=== PATIENT | female | born 1950 | race Caucasian/White ===

== ENCOUNTER → 2019-11-25 06:00 | Outpatient (CLI) | payer OTHER ==
[~2019-11-25 06:00] MED LIST: AMIODARONE HCL100 MG; AMLODIPINE BESYL5 MG PO; GLIMEPIRIDE4 M1 PO; LEVO-T88 MCG PO; LOSARTAN-HCTZ1 EAC2 PO; METFORMIN HCL500 M3 PO; XARELTO20 MG PO
== END | disposition home or self-care (01) ==
LOC: LAB 06:00 → ADM 13:00 → CIR.AMB 11-27 05:55 → EDSTATUS 11-27 13:00 → CIR.AMB 11-27 15:15
DX: K64.2 Third degree hemorrhoids (principal); K92.1 Melena; Z01.818 Encounter for other preprocedural examination

== ENCOUNTER 2025-02-05 08:15 | Inpatient (IN) | payer OTHER ==
[~2025-02-05] VITALS: Ht 167.6 cm; Wt 81.6 kg
[2025-02-05] MEDS ORDERED: XIGDUO XR 10 M1 EACH PO (10:24)
[2025-02-05] MEDS ORDERED: ATORVASTATIN CA10 MG PO (10:24)
[2025-02-05] MEDS ORDERED: AMIODARONE HCL100 MG PO (10:25)
[2025-02-05] MEDS ORDERED: ARICEPT5 MG PO (10:26)
[2025-02-05 10:34] VITALS: BP 157/91
[2025-02-05 10:36] LABS: HEMATOCRIT 41.2 % (36.0-45.00); HEMOGLOBIN 13.8 g/dL (12.0-15.00); MEAN CELL VOLUME 84.1 fL (80.00-100.00); MEAN CORPUSCULAR HEMOGLOBIN 28.1 pg (27.00-32.0); MEAN CORPUSCULAR HGB CONC 33.4 g/dl (32.0-36.0); PLATELET COUNT 142 K/uL (150-450); RED BLOOD COUNT 4.91 M/uL (4.00-6.00); RED CELL DISTRIBUTION WIDTH 14.1 % (11.5-14.5)
[2025-02-05 10:58] LABS: INR 1.22; PROTHROMBIN TIME 13.1 SECONDS (9.0-11.5)
[2025-02-05 11:01] LABS: PARTIAL THROMBOPLASTIN TIME 39.9 SECONDS (22.0-34.0)
[2025-02-05 11:18] LABS: ALBUMIN 3.5 gm/dL (3.4-5.0); BILIRUBIN TOTAL 0.57 mg/dL (0.3-1.2); CALCIUM 9.7 mg/dL (8.5-10.1); CREATININE SERUM 0.81 mg/dL (0.55-1.02); GFR 68.93; POTASSIUM 3.78 mEq/L (3.5-5.1); TOTAL PROTEIN 7.5 gm/dL (6.4-8.2)
[2025-02-05 12:09] LABS: PH,URINE 5.5 (5.0-8.0); URINE APPEARANCE Clear; URINE BILIRRUBIN Negative (NEGATIVE); URINE BLOOD Negative; URINE COLOR Yellow; URINE KETONE Negative (NEGATIVE); URINE LEUKOCYTE Negative; URINE NITRATE Negative; URINE PROTEIN Trace (NEGATIVE); URINE UROBILINOGEN 0.2 E.U./dl
[2025-02-05 12:10] LABS: URINE BACTERIA 9.7 uL (0.0-1933)
[2025-02-05 12:24] LABS: URINE CAST 0.14 uL (0.0-1.40); URINE EPITHELIAL CELLS 1.2 uL (0.0-38.8); URINE GLUCOSE >=1000 MG/DL (NEGATIVE); URINE RBC 0.2 uL (0.0-20.8); URINE WBC 1.7 uL (0.0-23.2)
[2025-02-18] MEDS ORDERED: DONEPEZIL HCL10 MG (08:15)
[2025-02-18] MEDS ORDERED: MEMANTINE HCL ER7 MG (08:15)
[2025-02-18] MEDS ORDERED: LEVOTHYROXINE100 MCG (08:16)
[2025-02-18] MEDS ORDERED: AMIODARONE HCL200 MG (08:16)
[2025-02-18] MEDS ORDERED: ST. JOSEPH ASPI81 M2 (08:16)
[2025-02-18] MEDS ORDERED: LOSARTAN POTAS100 MG (08:17)
[2025-02-18] MEDS ORDERED: ATORVASTATIN CA10 MG (08:17)
[2025-02-18] MEDS ORDERED: XIGDUO XR 10 M1 EAC1 (08:18)
[2025-02-18] MEDS ORDERED: KETOROLAC TROMETHAMINE 60 MG VIAL IM ONE (08:54)
[2025-02-18] MEDS ORDERED: APIXABAN 2.5 MG TABLET PO SCH (09:14)
[2025-02-18] MEDS ORDERED: OxyCODONE HCL 5 MG TABLET (ROXICODONE) PO PRN (09:15)
[2025-02-18] MEDS ORDERED: ONDANSETRON HCL 2 MG/ML VIAL IV PRN (09:15)
[2025-02-18] MEDS ORDERED: BUPIVACAINE HCL 30 ML VIAL IJ ONE (10:00)
[2025-02-18] MEDS ORDERED: CEFAZOLIN SODIUM 1,000 MG VIAL IV ONE (10:00)
[2025-02-18] MEDS ORDERED: TRANEXAMIC ACID 100MG/1ML (1000MG) AMPUL IV ONE (10:00)
[2025-02-18] MEDS ORDERED: LIDOCAINE HCL 1%/EPINEPHRINE 20ML VIAL IJ ONE (10:00)
[2025-02-18] MEDS ORDERED: MORPHINE SULFATE 4 MG/ML VIAL IV ONE ×2 (10:40→11:10)
[2025-02-18] MEDS ORDERED: DEXTROSE 50 % IN WATER 0.5 G/ML VIAL IV PRN (10:45)
[2025-02-18] MEDS ORDERED: ENALAPRILAT DIHYDRATE 1.25 MG/ML VIAL IV PRN (10:45)
[2025-02-18] MEDS ORDERED: INSULIN LISPRO 1,000 UNIT/10 ML UNITS SUBCUTANEO PRN (10:45)
[2025-02-18] MEDS ORDERED: CEFAZOLIN SODIUM 1,000 MG VIAL ONE (11:43)
[2025-02-18] MEDS ORDERED: ACETAMINOPHEN 325 MG TABLET PO SCH (12:00)
[2025-02-18] MEDS ORDERED: CEFAZOLIN SODIUM 1,000 MG VIAL IV SCH (12:00)
[2025-02-18] MEDS ORDERED: MORPHINE SULFATE 4 MG/ML CARTRIDGE IV SCH (12:00)
[2025-02-18 13:28] VITALS: BP 136/74; O2SAT 95
[2025-02-18 16:25] VITALS: O2SAT 94
[2025-02-18 16:39] VITALS: BP 127/67; O2SAT 100
[2025-02-18] MEDS ORDERED: DONEPEZIL HCL 10 MG TABLET PO SCH (17:00)
[2025-02-18] MEDS ORDERED: ATORVASTATIN CALCIUM 10 MG TABLET PO SCH (17:00)
[2025-02-18] MEDS ORDERED: MEMANTINE HCL 10 MG TABLET PO SCH (17:00)
[2025-02-18 19:26] VITALS: O2SAT 90
[2025-02-18] MEDS ORDERED: GABAPENTIN 100 MG CAPSULE PO SCH (21:00)
[2025-02-18] MEDS ORDERED: ORPHENADRINE CITRATE 100 MG TABLET PO SCH (21:00)
[2025-02-19] VITALS (8 sets, daily range): BP systolic 131–144; BP diastolic 74–84; O2SAT 89–96
[2025-02-19] MEDS ORDERED: LEVOTHYROXINE SODIUM 100 MCG TABLET PO SCH (06:00)
[2025-02-19 07:03] LABS: BASO % 0.3 % (0.1-1.2); EOS # 0.05 (0.04-0.54); EOS % 0.7 % (0.7-7.0); HEMATOCRIT 34.5 % (34.1-44.9); HEMOGLOBIN 10.6 g/dL (11.2-15.7); LYMPH # 0.78 (1.18-3.74); LYMPH % 10.4 % (19.3-53.1); MEAN CORPUSCULAR HEMOGLOBIN 26.8 pg (25.6-32.2); MONO # 0.79 (0.24-0.82); MONO % 10.5 % (4.7-12.5); NEUT # 5.84 (1.56-6.13); NEUT % 77.6 % (34.0-71.1); RED BLOOD COUNT 3.95 M/uL (3.93-5.22); RED CELL DISTRIBUTION WIDTH 14.5 % (11.6-14.4)
[2025-02-19 07:09] LABS: PLATELET COUNT 115 K/uL (163-369)
[2025-02-19] MEDS ORDERED: ENOXAPARIN SODIUM 30 MG/0.3 ML SYRINGE SUBCUTANEO SCH (09:00)
[2025-02-19] MEDS ORDERED: LOSARTAN POTASSIUM 100 MG TABLET PO SCH (09:00)
[2025-02-19] MEDS ORDERED: AMIODARONE HCL 200 MG TABLET PO SCH (09:00)
[2025-02-19] MEDS ORDERED: APIXABAN 2.5 MG TABLET PO SCH (09:00)
[2025-02-19 11:27] LABS: COVID-19 AG NEGATIVE (NEGATIVE)
[2025-02-19] MEDS ORDERED: IRON FUM,PS/FOLIC ACID/VITC/B3 1 CAP CAPSULE PO SCH (15:55)
[2025-02-19] MEDS ORDERED: VITAMIN B COMPLEX 1 EACH PO SCH (17:00)
[2025-02-19] MEDS ORDERED: Cyanocobalamin/Mecobalamin 1 TAB.SL SL SCH (17:00)
[2025-02-19] MEDS ORDERED: SOD FERRIC GLUC COMPLX/SUCROSE 62.5 MG/5 ML AMPUL IV SCH (17:00)
[2025-02-20 00:34] VITALS: BP 120/69; O2SAT 94
[2025-02-20 06:57] LABS: BASO % 0.3 % (0.1-1.2); EOS # 0.12 (0.04-0.54); EOS % 1.8 % (0.7-7.0); HEMATOCRIT 30.3 % (34.1-44.9); HEMOGLOBIN 9.3 g/dL (11.2-15.7); LYMPH # 0.68 (1.18-3.74); LYMPH % 10.5 % (19.3-53.1); MEAN CORPUSCULAR HEMOGLOBIN 26.6 pg (25.6-32.2); MONO # 0.76 (0.24-0.82); MONO % 11.7 % (4.7-12.5); NEUT % 75.4 % (34.0-71.1); RED BLOOD COUNT 3.49 M/uL (3.93-5.22); RED CELL DISTRIBUTION WIDTH 14.6 % (11.6-14.4)
[2025-02-20 07:20] LABS: PLATELET COUNT 122 K/uL (163-369)
[2025-02-20 08:00] VITALS: BP 134/74; O2SAT 94
[2025-02-20] MEDS ORDERED: ELIQUIS2.5 MG PO (10:15)
[2025-02-20] MEDS ORDERED: NORFLEX100MG PO (10:15)
[2025-02-20] MEDS ORDERED: GABAPENTIN100 MG PO (10:15)
[2025-02-20] MEDS ORDERED: OXYCODONE HCL5 MG PO (10:17)
[2025-02-20 16:21] VITALS: BP 153/77; O2SAT 97
== END 2025-02-20 19:59 | DRG 470 ==
LOC: SURH 02-11 08:15 → O/R 02-18 06:30 → SURG 02-18 06:30
PROVIDERS: ADMIT Orthopaedic Surgery; ATTEND Orthopaedic Surgery
PROC: 4A12X4Z Monitoring of Cardiac Electrical Activity, External Approach (ICD-10-PCS; 2025-02-18)
PROC: 0SRC0JZ Replacement of Right Knee Joint with Synthetic Substitute, Open Approach (ICD-10-PCS; principal; 2025-02-18 07:15)
DX: M17.11 Unilateral primary osteoarthritis, right knee (principal); D62 Acute posthemorrhagic anemia; M85.661 Other cyst of bone, right lower leg; I10 Essential (primary) hypertension

== ENCOUNTER 2025-02-10 14:52 | Outpatient (CLI) | payer OTHER ==
[~2025-02-10 14:52] MED LIST changes: +AMIODARONE HCL100 MG PO; +ARICEPT5 MG PO; +ATORVASTATIN CA10 MG PO; +XIGDUO XR 10 M1 EACH PO
[2025-02-10 16:12] LABS: INR 1.2; PROTHROMBIN TIME 12.9 SECONDS (9.0-11.5)
[2025-02-10 16:41] LABS: PARTIAL THROMBOPLASTIN TIME 38.4 SECONDS (22.0-34.0)
== END 2025-02-10 15:30 | disposition home or self-care (01) ==
LOC: LAB 14:52
PROVIDERS: ATTEND Internal Medicine
DX: D64.9 Anemia, unspecified (principal); D68.9 Coagulation defect, unspecified

== ENCOUNTER 2025-02-23 11:43 | Inpatient (IN) | payer OTHER ==
[~2025-02-23] VITALS: Ht 167.6 cm; Wt 81.6 kg
[~2025-02-23 11:43] MED LIST changes: +AMIODARONE HCL200 MG; +ATORVASTATIN CA10 MG; +DONEPEZIL HCL10 MG; +ELIQUIS2.5 MG PO; +GABAPENTIN100 MG PO; +LEVOTHYROXINE100 MCG; +LOSARTAN POTAS100 MG; +MEMANTINE HCL ER7 MG; +NORFLEX100MG PO; +OXYCODONE HCL5 MG PO; +ST. JOSEPH ASPI81 M2; +XIGDUO XR 10 M1 EAC1
[2025-02-23 13:58] LABS: BASO % 0.5 % (0.1-1.2); EOS # 0.04 (0.04-0.54); EOS % 0.7 % (0.7-7.0); LYMPH # 0.69 (1.18-3.74); LYMPH % 11.9 % (19.3-53.1); MONO # 0.57 (0.24-0.82); MONO % 9.8 % (4.7-12.5); NEUT # 4.44 (1.56-6.13); NEUT % 76.2 % (34.0-71.1); PLATELET COUNT 233 K/uL (163-369); RED CELL DISTRIBUTION WIDTH 14.4 % (11.6-14.4)
[2025-02-23 14:21] LABS: ALBUMIN 2.4 gm/dL (3.4-5.0); BILIRUBIN TOTAL 1.07 mg/dL (0.3-1.2); BILIRUBIN,CONJUGATED 0.37 mg/dL (0.0-0.2); BILIRUBIN,UNCONJUGATED 0.7 mg/dL (0.0-0.6); CALCIUM 8.6 mg/dL (8.5-10.1); CREATININE SERUM 0.73 mg/dL (0.55-1.02); GFR 77.72; GLOBULINA 3.7 G/DL (2.4-3.5); POTASSIUM 4.49 mEq/L (3.5-5.1); TOTAL PROTEIN 6.1 gm/dL (6.4-8.2)
[2025-02-23 14:44] LABS: HEMATOCRIT 25.9 % (34.1-44.9); HEMOGLOBIN 8.1 g/dL (11.2-15.7)
[2025-02-23] MEDS ORDERED: Cyanocobalamin/Mecobalamin 1 TAB.SL SL SCH (14:58)
[2025-02-23] MEDS ORDERED: ACETAMINOPHEN 500 MG GEL..CAP PO PRN (15:00)
[2025-02-23] MEDS ORDERED: FUROsemide 20 MG/2 ML VIAL IV SCH (15:00)
[2025-02-23] MEDS ORDERED: ENALAPRILAT DIHYDRATE 1.25 MG/ML VIAL IV PRN (15:00)
[2025-02-23] MEDS ORDERED: 0.9 % SODIUM CHLORIDE 1,000 ML IV SCH (15:00)
[2025-02-23] MEDS ORDERED: INSULIN LISPRO 1,000 UNIT/10 ML UNITS SUBCUTANEO PRN (15:00)
[2025-02-23] MEDS ORDERED: DEXTROSE 50 % IN WATER 0.5 G/ML DISP.SYRIN IV PRN (15:00)
[2025-02-23 15:03] LABS: INR 1.31
[2025-02-23 15:12] LABS: PARTIAL THROMBOPLASTIN TIME 40.2 SECONDS (22.0-34.0)
[2025-02-23 15:32] LABS: COVID-19 AG NEGATIVE (NEGATIVE)
[2025-02-23 15:34] LABS: INFLUENZA A AG NEGATIVE (NEGATIVE); INFLUENZA B AG NEGATIVE (NEGATIVE)
[2025-02-23] MEDS ORDERED: MEMANTINE HCL 10 MG TABLET PO SCH (17:00)
[2025-02-23] MEDS ORDERED: DONEPEZIL HCL 10 MG TABLET PO SCH (17:00)
[2025-02-23] MEDS ORDERED: SOD FERRIC GLUC COMPLX/SUCROSE 62.5 MG in 0.9 % SODIUM CHLORIDE 50 ML IV SCH (17:00)
[2025-02-23] MEDS ORDERED: ATORVASTATIN CALCIUM 10 MG TABLET PO SCH (17:00)
[2025-02-23 17:30] VITALS: BP 100/65; O2SAT 96
[2025-02-23 18:18] LABS: COL ADP 142 SECONDS (56-102); COL EPI 73 SECONDS (82-175)
[2025-02-23] MEDS ORDERED: FAMOTIDINE/PF 20 MG/2 ML VIAL IV SCH (21:00)
[2025-02-23] MEDS ORDERED: GABAPENTIN 100 MG CAPSULE PO SCH (21:00)
[2025-02-23] MEDS ORDERED: POLYETHYLENE GLYCOL 3350 17 GM BLIST.PACK PO SCH (21:00)
[2025-02-24 01:07] VITALS: BP 133/76; O2SAT 94
[2025-02-24] MEDS ORDERED: LEVOTHYROXINE SODIUM 100 MCG TABLET PO SCH (06:00)
[2025-02-24] MEDS ORDERED: AMIODARONE HCL 200 MG TABLET PO SCH (09:00)
[2025-02-24] MEDS ORDERED: LOSARTAN POTASSIUM 100 MG TABLET PO SCH (09:00)
[2025-02-24 09:01] VITALS: BP 123/76; O2SAT 95
[2025-02-24 16:00] VITALS: BP 104/66; O2SAT 96
[2025-02-24] MEDS ORDERED: ENOXAPARIN SODIUM 30 MG/0.3 ML SYRINGE SUBCUTANEO SCH (21:00)
[2025-02-25 00:32] VITALS: BP 116/68; O2SAT 98
[2025-02-25 02:54] LABS: BASO % 0.3 % (0.1-1.2); EOS # 0.09 (0.04-0.54); EOS % 1.5 % (0.7-7.0); HEMATOCRIT 26.9 % (34.1-44.9); HEMOGLOBIN 8.7 g/dL (11.2-15.7); LYMPH # 0.84 (1.18-3.74); LYMPH % 13.9 % (19.3-53.1); MEAN CORPUSCULAR HEMOGLOBIN 27.4 pg (25.6-32.2); NEUT # 4.41 (1.56-6.13); NEUT % 73.1 % (34.0-71.1); PLATELET COUNT 199 K/uL (163-369); RED BLOOD COUNT 3.18 M/uL (3.93-5.22); RED CELL DISTRIBUTION WIDTH 14.7 % (11.6-14.4)
[2025-02-25 08:00] VITALS: BP 145/72; O2SAT 97
[2025-02-25 16:00] VITALS: BP 116/84; O2SAT 94
[2025-02-25] MEDS ORDERED: FAMOtidine 20 MG TABLET PO SCH (21:00)
[2025-02-26 01:07] VITALS: BP 132/86; O2SAT 98
[2025-02-26 08:00] VITALS: BP 158/76; O2SAT 95
[2025-02-26 13:57] LABS: COVID-19 AG NEGATIVE (NEGATIVE)
[2025-02-26] MEDS ORDERED: VITAMIN B COMPLEX 1 EACH PO SCH (17:00)
[2025-02-26 17:46] VITALS: BP 129/67; O2SAT 94
[2025-02-26] MEDS ORDERED: FUROsemide 20 MG/2 ML VIAL IV SCH (23:30)
[2025-02-27 01:18] VITALS: BP 129/79; O2SAT 98
[2025-02-27 01:41] LABS: BASO % 0.3 % (0.1-1.2); EOS # 0.12 (0.04-0.54); EOS % 1.8 % (0.7-7.0); HEMATOCRIT 35.1 % (34.1-44.9); HEMOGLOBIN 11.6 g/dL (11.2-15.7); LYMPH # 0.93 (1.18-3.74); LYMPH % 14.1 % (19.3-53.1); MEAN CORPUSCULAR HEMOGLOBIN 28.3 pg (25.6-32.2); MONO # 0.78 (0.24-0.82); MONO % 11.8 % (4.7-12.5); NEUT # 4.69 (1.56-6.13); NEUT % 70.9 % (34.0-71.1); PLATELET COUNT 198 K/uL (163-369); RED CELL DISTRIBUTION WIDTH 15.6 % (11.6-14.4)
[2025-02-27 08:00] VITALS: BP 157/89; O2SAT 97
[2025-02-27 17:05] VITALS: BP 126/70; O2SAT 96
[2025-02-28 00:46] VITALS: BP 136/75; O2SAT 97
[2025-02-28 07:04] LABS: BASO % 0.4 % (0.1-1.2); EOS # 0.19 (0.04-0.54); EOS % 2.6 % (0.7-7.0); HEMATOCRIT 38.1 % (34.1-44.9); LYMPH # 1.02 (1.18-3.74); MEAN CORPUSCULAR HEMOGLOBIN 27.7 pg (25.6-32.2); MONO # 0.66 (0.24-0.82); MONO % 9.1 % (4.7-12.5); NEUT # 5.33 (1.56-6.13); NEUT % 73.2 % (34.0-71.1); PLATELET COUNT 194 K/uL (163-369); RED BLOOD COUNT 4.33 M/uL (3.93-5.22); RED CELL DISTRIBUTION WIDTH 15.6 % (11.6-14.4)
== END 2025-02-28 17:33 | DRG 379 ==
LOC: ER 11:43 → SURH 15:15
PROVIDERS: Emergency Medicine; Internal Medicine Geriatric Medicine; Orthopaedic Surgery; ADMIT Internal Medicine; ATTEND Internal Medicine
PROC: 30233N1 Transfusion of Nonautologous Red Blood Cells into Peripheral Vein, Percutaneous Approach (ICD-10-PCS; principal; 2025-02-23)
DX: K62.5 Hemorrhage of anus and rectum (principal); D64.9 Anemia, unspecified; E03.9 Hypothyroidism, unspecified; I10 Essential (primary) hypertension; G30.9 Alzheimer's disease, unspecified; F02.80 Dementia in other diseases classified elsewhere, unspecified severity, without behavioral disturbance, psychotic disturbance, mood disturbance, and anxiety; I48.0 Paroxysmal atrial fibrillation

== ENCOUNTER 2025-04-19 20:16 | Emergency (ER) | payer OTHER ==
[~2025-04-19] VITALS: Ht 160 cm; Wt 78.0 kg
[2025-04-19 20:41] VITALS: BP 135/81; O2SAT 99
[2025-04-19] MEDS ORDERED: CEFTRIAXONE SODIUM 1,000 MG VIAL ONE (21:08)
[2025-04-19] MEDS ORDERED: CEFTRIAXONE SODIUM 1,000 MG VIAL IM STA (21:09)
[2025-04-19 21:23] LABS: BASO % 0.6 % (0.1-1.2); EOS # 0.20 (0.04-0.54); EOS % 3.9 % (0.7-7.0); LYMPH # 0.87 (1.18-3.74); LYMPH % 17.0 % (19.3-53.1); MEAN PLATELET VOLUME 12.00 fl (9.4-12.4); MONO # 0.53 (0.24-0.82); MONO % 10.4 % (4.7-12.5); NEUT # 3.48 (1.56-6.13); NEUT % 67.9 % (34.0-71.1); RED CELL DISTRIBUTION WIDTH 16.0 % (11.6-14.4)
== END 2025-04-19 22:12 | disposition home or self-care (01) ==
LOC: ER 20:52
PROVIDERS: General Practice
DX: G89.11 Acute pain due to trauma (principal); L03.90 Cellulitis, unspecified; M25.561 Pain in right knee; M25.562 Pain in left knee; T14.8XXA Other injury of unspecified body region, initial encounter
CPT/HCPCS: 36415; 73565; 96372; 99283; J0696